=== PATIENT | female | born 1990 | race Caucasian/White ===

== ENCOUNTER 2016-05-27 16:38 | Emergency (ER) | payer SELFPAY ==
[2016-05-27] MEDS ORDERED: IBUPROFEN 800 MG TABLET PO ONE (17:33)
--- NOTE | 2016-05-27 17:33 | ER Document Report ---
ED Medical Screen (RME) - General Stated Complaint: ABDOMINAL PAIN W/VAGINAL DISCHARGE Notes: one week spotting which has progressed to clots abdominal pain started yesterday AM has had a mirena for 3.5 years test is negative I have greeted and performed a rapid initial assessment of this patient. A comprehensive ED assessment and evaluation of the patient, analysis of test results and completion of the medical decision making process will be conducted by additional ED providers. - Related Data Allergies/Adverse Reactions: No Known Allergies Allergy (Unverified 05/27/16 17:31) Physical Exam - Vital signs Vitals: Temp Pulse Resp BP Pulse Ox 98.0 F 80 18 115/77 98 05/27/16 17:01 05/27/16 17:01 05/27/16 17:01 05/27/16 17:01 05/27/16 17:01 Course - Vital Signs Vital signs: Temp Pulse Resp BP Pulse Ox 98.0 F 80 18 115/77 98 05/27/16 17:01 05/27/16 17:01 05/27/16 17:01 05/27/16 17:01 05/27/16 17:01
[2016-05-27 17:58] LABS: ABSOLUTE EOSINOPHILS # (AUTO) 0.1 10^3/uL (0.0-0.6); ABSOLUTE LYMPHOCYTES (AUTO) 2.3 10^3/uL (0.5-4.7); BASOPHILS % (AUTO) 0.3 % (0-2); EOSINOPHILS % (AUTO) 0.8 % (0-6); HEMATOCRIT 39.7 % (36.0-47.0); HEMOGLOBIN 13.4 g/dL (12.0-15.5); HGB HCT DIFFERENCE 0.5; LYMPHOCYTES % (AUTO) 15.6 % (13-45); MEAN CORPUSCULAR HEMOGLOBIN 29.4 pg (27.0-33.4); MEAN CORPUSCULAR HGB CONC 33.8 g/dL (32.0-36.0); MEAN CORPUSCULAR VOLUME 87 fl (80-97); MONOCYTES % (AUTO) 7.2 % (3-13); RED BLOOD COUNT 4.56 10^6/uL (3.72-5.28); RED CELL DISTRIBUTION WIDTH 14.5 % (11.5-14.0); SEGMENTED NEUTROPHILS % (AUTO) 76.1 % (42-78); WHITE BLOOD COUNT 14.5 10^3/uL (4.0-10.5)
[2016-05-27 18:19] LABS: ALANINE AMINOTRANSFERASE 32 U/L (9-52); ALBUMIN 4.3 g/dL (3.5-5.0); ALKALINE PHOSPHATASE 97 U/L (38-126); ANION GAP 9 (5-19); ASPARTATE AMINO TRANSFERASE 20 U/L (14-36); BILIRUBIN,TOTAL 0.6 mg/dL (0.2-1.3); BLOOD UREA NITROGEN 15 mg/dL (7-20); CALCIUM 9.6 mg/dL (8.4-10.2); CARBON DIOXIDE 29 mmol/L (22-30); CHLORIDE 103 mmol/L (98-107); CREATININE RESULT 1.01 mg/dL (0.52-1.25); GLUCOSE 86 mg/dL (75-110); POTASSIUM 4.5 mmol/L (3.6-5.0); SODIUM 140.8 mmol/L (137-145); TOTAL PROTEIN 7.2 g/dL (6.3-8.2)
[2016-05-27 21:21] LABS: APPEARANCE,URINE SLIGHTLY-CLOUDY; BILIRUBIN,URINE NEGATIVE (NEGATIVE); GLUCOSE, URINE NEGATIVE (NEGATIVE); KETONES,URINE TRACE mg/dL (NEGATIVE); LEUKOCYTE ESTERASE,URINE SMALL (NEGATIVE); NITRITE,URINE NEGATIVE (NEGATIVE); PROTEIN,URINE NEGATIVE (NEGATIVE); URINE SPECIFIC GRAVITY 1.024; UROBILINOGEN,URINE NEGATIVE mg/dL (<2.0)
[2016-05-27] MEDS ORDERED: CIPROFLOXACIN HCL 500 MG TABLET PO ONE (21:41)
[2016-05-27] MEDS ORDERED: KETOROLAC TROMETHAMINE 60 MG/2 ML SDV IM ONE (21:41)
--- NOTE | 2016-05-27 21:43 | ER Document Report ---
ED General - General Chief Complaint: Vaginal Bleeding Stated Complaint: ABDOMINAL PAIN W/VAGINAL DISCHARGE Mode of Arrival: Ambulatory Information source: Patient Notes: Patient's 26-year-old female who presents with low back pain and low abdominal cramping that started yesterday. She states that she has had vaginal bleeding described as spotting for the past week and passed a quarter size blood clot yesterday. She has had been Mirena for the past 3-1/2 years and does not have vaginal bleeding with this. She denies any fever, chills, dizziness, lightheadedness, syncope, nausea, vomiting, diarrhea, vaginal discharge or urinary symptoms. She has tried Tylenol for the pain without relief. TRAVEL OUTSIDE OF THE [place] IN LAST 30 DAYS: No - Related Data Allergies/Adverse Reactions: No Known Allergies Allergy (Unverified 05/27/16 17:31) Past Medical History - Social History Smoking Status: Never Smoker Chew tobacco use (# tins/day): No Frequency of alcohol use: None Drug Abuse: None Family History: Reviewed & Not Pertinent Patient has suicidal ideation: No Patient has homicidal ideation: No Renal/ Medical History: Denies: Hx Peritoneal Dialysis Review of Systems - Review of Systems Constitutional: See HPI EENT: No symptoms reported Cardiovascular: No symptoms reported Respiratory: No symptoms reported Gastrointestinal: See HPI Genitourinary: See HPI Female Genitourinary: See HPI Musculoskeletal: No symptoms reported Skin: No symptoms reported Hematologic/Lymphatic: No symptoms reported Neurological/Psychological: No symptoms reported Physical Exam - Vital signs Vitals: Temp Pulse Resp BP Pulse Ox 98.0 F 80 18 115/77 98 05/27/16 17:01 05/27/16 17:01 05/27/16 17:01 05/27/16 17:01 05/27/16 17:01 Interpretation: Normal - Notes Notes: PHYSICAL EXAM: CONSTITUTIONAL: Alert and oriented, well-appearing and in no acute distress. Appears comfortable. HENT: Normocephalic, atraumatic. Moist mucous membranes. EYES: Pupils equal round and reactive to light, EOM intact. Sclera anicteric, conjunctiva are normal. No entrapment. HEART: Regular rate and rhythm without murmurs. LUNGS: CTAB and equal. No wheezes, rales or rhonchi. GI: Normactive bowel sounds. Mild tenderness to palpation in suprapubic region, non-distended. No organomegaly. + mild L CVAT. NEURO: Cranial nerves grossly intact. Normal sensory/motor exams. SKIN: Warm and dry. Normal turgor. No rashes or lesions noted. Course - Re-evaluation Re-evalutation: 05/27/16 21:44 Since seen and examined. No evidence of central cord syndrome or cauda equina syndrome. Abdomen soft with mild tenderness in suprapubic region but without peritoneal signs. Reviewed lab work - H/H within normal limits, leukocytosis of 14.5 noted. Chemistry panel within normal limits. Urinalysis with small leuk esterase, 20 WBC, trace bacteria, trace ketones, moderate mucus. Discussed with patient that what was presumed as vaginal bleeding could be hematuria. Given ibuprofen in triage, patient does not report pain relief. Given IM Toradol and dose of antibiotics here. Discharged home in stable condition, follow-up with primary care doctor/[employer]. Return precautions given. - Vital Signs Vital signs: Temp Pulse Resp BP Pulse Ox 98.0 F 80 18 115/77 98 05/27/16 17:01 05/27/16 17:01 05/27/16 17:01 05/27/16 17:01 05/27/16 17:01 - Laboratory Result Diagrams: 05/27/16 17:45 05/27/16 17:45 Laboratory results interpreted by me: 05/27/16 05/27/16 17:45 21:00 WBC 14.5 H RDW 14.5 H Absolute Neutrophils 11.0 H Urine Ketones TRACE H Ur Leukocyte Esterase SMALL H Discharge - Discharge Clinical Impression: Acute cystitis Qualifiers: Hematuria presence: with hematuria Qualified Code(s): N30.01 - Acute cystitis with hematuria Condition: Stable Disposition: HOME, SELF-CARE Additional Instructions: URINARY TRACT INFECTION: Your evaluation indicates that you have a urinary tract infection. This is due to germs growing in the bladder. This is a common problem. This infection usually responds quickly to antibiotics. Your antibiotic should be taken exactly as prescribed. Drink plenty of fluids -- three to four quarts a day. Occasionally, a bladder anesthetic will be prescribed to help stop the feeling of urgency until the antibiotic has a chance to clear the infection. This may cause your urine to be dark orange. Certain urine infections require a culture. If the doctor obtained a culture, the results will be back in two days. You should call to see if a change in treatment is needed. A repeat urinalysis after you finish treatment is often recommended. The physician will let you know if further testing is required. Call the doctor if you develop fever, chills, flank pain, inability to urinate, or blood in the urine. ANTIBIOTIC THERAPY: You have been given an antibiotic prescription. It's important that you take all the medication, unless instructed otherwise by your physician. Failure to complete the entire course can result in relapse of your condition. Common side effects of antibiotics include nausea, intestinal cramping, or diarrhea. Women may develop vaginal yeast infections, and babies can get yeast (thrush) in the mouth following the use of antibiotics. Contact your physician if you develop significant side effects from this medication. Allergy to this antibiotic can result in hives, wheezing, faintness, or itching. If symptoms of allergy occur, stop the medication and call the doctor. CIPROFLOXACIN: You have been given an antibacterial agent, ciprofloxacin (Cipro). This medicine is not related to the penicillins, sulfas, cephalosporins, or tetracyclines. It is often given to patients who are allergic to these drugs. It has been chosen for you either because other drugs are not appropriate, or because of the nature of your problem. Cipro should not be taken with antacids, as these can decrease its effectiveness. It can be taken without regard to meals. CIPRO SHOULD NOT BE TAKEN BY CHILDREN, NURSING WOMEN, OR WOMEN. Although Cipro is usually well-tolerated, common side effects can include nausea and diarrhea. Contact your doctor if you experience any unusual symptoms while on this medication, such as joint pain or swelling, shortness of breath, wheezing, faintness, or hives. FOLLOW-UP CARE: If you have been referred to a physician for follow-up care, call the physician s office for an appointment as you were instructed or within the next two days. If you experience worsening or a significant change in your symptoms, notify the physician immediately or return to the Emergency Department at any time for re-evaluation. Prescriptions: Ciprofloxacin HCl [Cipro 500 mg Tablet] 500 mg PO BID #10 tablet Naproxen [Naprosyn 250 mg Tablet] 250 mg PO DAILY PRN #14 tablet PRN Reason:
[2016-05-27 22:15] VITALS: BP 126/72
== END 2016-05-27 22:13 | disposition home or self-care (01) ==
LOC: ER 16:38
DX: N30.01 Acute cystitis with hematuria (principal); M54.5 Low back pain; R10.30 Lower abdominal pain, unspecified; N93.9 Abnormal uterine and vaginal bleeding, unspecified; D72.829 Elevated white blood cell count, unspecified; Z97.5 Presence of (intrauterine) contraceptive device
CPT/HCPCS: 99284; 96372; 36415; 84703; 85025; 80053; 81001; J1885